=== PATIENT | female | born 1970 | race African-American/Black ===

== ENCOUNTER 2021-02-28 09:10 | Emergency (ER) | payer OTHER ==
[~2021-02-28] VITALS: Ht 157.5 cm; Wt 89.7 kg
[2021-02-28] MEDS ORDERED: IV NORMAL SALINE 1000ML BAG 1,000 ML IV ONE (10:30)
[2021-02-28] MEDS ORDERED: CARV25TA2 PO (10:37)
--- NOTE | 2021-02-28 11:10 | EKG ---
[facility] [address] [place] [address] Test Date: 2021-02-28 Test Time: 10:58:09 Pat Name: ROCK RAMIREZ Department: Room: Gender: F Account Support Specialist: : 1970 Requested By: JASMINE GAITAN Order Number: [id number] Reading MD: Yrn Suero Measurements Intervals [place] Rate: 91 P: 63 TX: 144 QRS: -21 QRSD: 90 T: -1 QT: 378 QTc: 467 Interpretive Statements SINUS RHYTHM LEFT ATRIAL ABNORMALITY LEFTWARD AXIS INCOMPLETE RIGHT BUNDLE BRANCH BLOCK CONSIDER LEFT VENTRICULAR HYPERTROPHY NON SPECIFIC ST-T WAVE CHANGES RI6.02 No previous ECG available for comparison Electronically Signed On 02-28-2021 15:17:23 [employer] by Yrn Suero
[2021-02-28 11:11] LABS: BASO # 0.1 x10^3/uL (0.0-0.2); BASO % 1 % (0-3); EOS # 0.3 x10^3/uL (0.0-0.7); EOS % 3 % (0-3); HEMATOCRIT 36.3 % (36.0-47.0); HEMOGLOBIN 11.6 g/dL (12.0-15.5); LYMPH # 2.5 x10^3/uL (1.0-4.8); LYMPH % 32 % (24-48); MEAN CORPUSCULAR HEMOGLOBIN 28 pg (25-35); MEAN CORPUSCULAR HGB CONC 32 g/dL (31-37); MEAN CORPUSCULAR VOLUME 86 fL (79-100); MONO # 0.8 x10^3/uL (0.0-1.1); MONO % 10 % (0-9); NEUT # 4.4 x10^3/uL (1.8-7.7); NEUT % 55 % (31-73); PLATELET COUNT 299 x10^3/uL (140-400); RED BLOOD COUNT 4.22 x10^6/uL (3.50-5.40); RED CELL DISTRIBUTION WIDTH 14.5 % (11.5-14.5)
--- NOTE | 2021-02-28 11:18 | PHYS DOC ---
Past Medical History Past Medical History: Hypertension Past Surgical History: Other Additional Past Surgical Histo: 2006- sx for ruptured nasal blood vessels(AVM?), required inpt transfusion Smoking Status: Never Smoker Alcohol Use: Occasionally General Adult EDM: Chief Complaint: DIZZY/LIGHT HEADED HPI: HPI: Patient is a 50 year old female who presents with lightheadedness and presyncope for the past 2 days with one episode of syncope. Patient reports her symptoms are worse upon standing from sitting or supine position. And her syncopal episode 2 days ago, patient states that she was standing in the bathroom at the sink. She denies head trauma. Patient reports she lost consciousness for period of a few minutes. Her son was at home at the time, and she called out to him. She called her primary care doctor at that time, who told her her symptoms were likely due to resuming her high blood pressure medications after having been out for some time. Patient denies headache, vertigo, vision changes, visual field deficits, chest pain, palpitations, abdominal pain, NVD, bloody stool or emesis. Patient is currently menstruating. Review of Systems: Review of Systems: Constitutional: Denies fever or chills. Eyes: See HPI HENT: Denies nasal congestion or sore throat. Respiratory: Denies cough or shortness of breath. Cardiovascular: Denies chest pain or edema. GI: See HPI : Denies dysuria or hematuria. Musculoskeletal: Denies back pain or joint pain. Integument: Denies rash or other skin lesions. Neurologic: See HPI Heart Score: C/O Chest Pain: No Current Medications: Current Medications Medications (Trade) Dose Ordered Sig/Ness Start Time Stop Time Status Last Admin Dose Admin Sodium Chloride 1,000 ml @ 1,000 mls/hr 1X ONCE 02/28/21 10:30 02/28/21 11:29 02/28/21 10:58 1,000 MLS/HR Allergies: Allergies: Allergies Coded Allergies Type Severity Reaction Last Updated Verified iodine Allergy Intermediate 02/28/21 Yes Physical Exam: PE: Constitutional: Well developed, well nourished, no acute distress, non-toxic appearance. HENT: Normocephalic, atraumatic, bilateral external ears without deformity or discharge, oropharynx moist, no oral exudates, nose without deformity or discharge. Eyes: PERRLA, EOMI, conjunctiva normal, no discharge. Neck: Normal range of motion, no tenderness, supple, no stridor. Cardiovascular: Heart rate regular rhythm, no murmur. Lungs & Thorax: Bilateral breath sounds clear to auscultation. Skin: Warm, dry, no erythema, no rash. Neurologic: Alert and oriented x4, motor strength 5/5 grossly in extremities x4, sensory function grossly intact, no focal deficits noted. Current Patient Data: Labs: Laboratory Tests Test 02/28/21 10:12 02/28/21 10:15 02/28/21 12:55 Glucose (Fingerstick) 103 mg/dL (70-99) White Blood Count 8.0 x10^3/uL (4.0-11.0) Red Blood Count 4.22 x10^6/uL (3.50-5.40) Hemoglobin 11.6 g/dL (12.0-15.5) Hematocrit 36.3 % (36.0-47.0) Mean Corpuscular Volume 86 fL (79-100) Mean Corpuscular Hemoglobin 28 pg (25-35) Mean Corpuscular Hemoglobin Concent 32 g/dL (31-37) Red Cell Distribution Width 14.5 % (11.5-14.5) Platelet Count 299 x10^3/uL (140-400) Neutrophils (%) (Auto) 55 % (31-73) Lymphocytes (%) (Auto) 32 % (24-48) Monocytes (%) (Auto) 10 % (0-9) Eosinophils (%) (Auto) 3 % (0-3) Basophils (%) (Auto) 1 % (0-3) Neutrophils # (Auto) 4.4 x10^3/uL (1.8-7.7) Lymphocytes # (Auto) 2.5 x10^3/uL (1.0-4.8) Monocytes # (Auto) 0.8 x10^3/uL (0.0-1.1) Eosinophils # (Auto) 0.3 x10^3/uL (0.0-0.7) Basophils # (Auto) 0.1 x10^3/uL (0.0-0.2) Sodium Level 134 mmol/L (136-145) Potassium Level 4.1 mmol/L (3.5-5.1) Chloride Level 97 mmol/L (98-107) Carbon Dioxide Level 22 mmol/L (21-32) Anion Gap 15 (6-14) Blood Urea Nitrogen 12 mg/dL (7-20) Creatinine 0.9 mg/dL (0.6-1.0) Estimated GFR (Cockcroft-Gault) 80.9 BUN/Creatinine Ratio 13 (6-20) Glucose Level 93 mg/dL (70-99) Calcium Level 8.9 mg/dL (8.5-10.1) Total Bilirubin 0.5 mg/dL (0.2-1.0) Aspartate Amino Transf (AST/SGOT) 22 U/L (15-37) Alanine Aminotransferase (ALT/SGPT) 30 U/L (14-59) Alkaline Phosphatase 70 U/L (46-116) Troponin I High Sensitivity 7 ng/L (4-50) Total Protein 7.6 g/dL (6.4-8.2) Albumin 3.5 g/dL (3.4-5.0) Albumin/Globulin Ratio 0.9 (1.0-1.7) Urine Collection Type Unknown Urine Color Yellow Urine Clarity Clear Urine pH 6.0 (<5.0-8.0) Urine Specific [place] 1.010 (1.000-1.030) Urine Protein Negative mg/dL (NEG-TRACE) Urine Glucose (UA) Negative mg/dL (NEG) Urine Ketones (Stick) Negative mg/dL (NEG) Urine Blood Large (NEG) Urine Nitrite Negative (NEG) Urine Bilirubin Negative (NEG) Urine Urobilinogen Dipstick 0.2 mg/dL (0.2 mg/dL) Urine Leukocyte Esterase Negative (NEG) Urine RBC >40 /HPF (0-2) Urine WBC 0 /HPF (0-4) Urine Squamous Epithelial Cells Few /LPF Urine Bacteria 0 /HPF (0-FEW) Vital Signs: Vital Signs Date Time Temp Pulse Resp B/P (MAP) Pulse Ox O2 Delivery O2 Flow Rate FiO2 02/28/21 10:10 97.8 96 16 141/74 (96) 97 Room Air 97.8 EKG: EKG: EKG Interpreted by Dr. Coronado at 1013: Regular rate and rhythm 93 bpm with no ectopic beats. RBBB. QT 360 ms/QTc 460 ms. No STEMI. Radiology/Procedures: Radiology/Procedures: PROCEDURE: PORTABLE CHEST 1V Site ID: [id number] EXAMINATION: XR CHEST 1V. HISTORY: 50 years Female Reason: CP, lightheaded / . COMPARISON: None. Findings: There is mild opacity in the left lung base favored to represent the soft tissue superimposition on this portable radiograph. No definite focal airspace consolidation.. The heart size is near the upper limits of normal. There is no effusion or pneumothorax. The mediastinum and fuentes appear unremarkable. Impression: Increased opacity in the left lung base is favored to be secondary soft tissue superimposition on this portable radiograph. Electronically signed by: Anjel James MD (02/28/2021 11:31 AM) [id number] Course & Med Decision Making: Course & Med Decision Making Pertinent Labs and Imaging studies reviewed. (See chart for details) Patient is a 42-year-old female who presents with 1 syncopal episode and dizziness/presyncope since. When she called her primary care doctor after syncopal episode, he stated that her symptoms were likely due to resuming her blood pressure medications after not taking them for some time. Patient pre sents today due to persistent symptoms of lightheadedness. Work-up today will include EKG, chest x-ray, lab work. Work-up today is largely reassuring and shows some signs of mild dehydration. Advised patient to follow-up with her primary care doctor as soon as she is able. Reassured her that her EKG and lab work were unremarkable today. Patient given return precautions. Patient understands and is agreeable to discharge plan. Dragon Disclaimer: Ching Disclaimer: This electronic medical record was generated, in whole or in part, using a voice recognition dictation system. Departure Departure Impression: Primary Impression: Lightheadedness Additional Impression: Hx of syncope Disposition: HOME / SELF CARE / HOMELESS Condition: STABLE Referrals: NON,STAFF (PCP) Patient Instructions: Hypertension, [id number], Syncope, [id number] Additional Instructions: Your work-up here in the emergency department, including chest x-ray, EKG and lab work, was very reassuring. You should follow-up with your primary care doctor regarding your symptoms and today's visit. Be sure to take in plenty of fluids by mouth over the next few days to stay hydrated. If you have worsening symptoms or develop any new ones, please return to the emergency department. JASMINE GAITAN Feb 28, 2021 11:18
[2021-02-28 11:27] LABS: CALCIUM 8.9 mg/dL (8.5-10.1); CREATININE 0.9 mg/dL (0.6-1.0); GFR 80.9; POTASSIUM 4.1 mmol/L (3.5-5.1)
[2021-02-28 11:33] LABS: ALBUMIN 3.5 g/dL (3.4-5.0); ALBUMIN/GLOBULIN RATIO 0.9 (1.0-1.7); TOTAL BILIRUBIN 0.5 mg/dL (0.2-1.0); TOTAL PROTEIN 7.6 g/dL (6.4-8.2)
--- NOTE | 2021-02-28 11:33 | RAD ---
Site ID: [id number] EXAMINATION: XR CHEST 1V. HISTORY: 50 years Female Reason: CP, lightheaded / . COMPARISON: None. Findings: There is mild opacity in the left lung base favored to represent the soft tissue superimpos ition on this portable radiograph. No definite focal airspace consolidation.. The heart size is near the upper limits of normal. There is no effusion or pneumothorax. The mediastinum and fuentes appear unremarkable. Impression: Increased opacity in the left lung base is favored to be secondary soft tissue superimpos ition on this portable radiograph. Electronically signed by: Anjel James MD (02/28/2021 11:31 AM) [id number]
[2021-02-28 13:20] LABS: BILIRUBIN,URINE NEGATIVE (NEG); CLARITY,URINE CLEAR; COLOR,URINE YELLOW; NITRITE,URINE NEGATIVE (NEG); PROTEIN,URINE NEGATIVE (NEG-TRACE); UROBILINOGEN,URINE 0.2 mg/dL (0.2 mg/dL)
[2021-02-28 13:27] LABS: RBC,URINE >40 /HPF (0-2)
[2021-02-28 13:29] LABS: BACTERIA,URINE 0 /HPF (0-FEW); WBC,URINE 0 /HPF (0-4)
[2021-02-28 14:23] VITALS: BP 149/69
--- NOTE | 2021-03-02 08:07 | EKG ---
[facility] [address] [place] [address] Test Date: 2021-02-28 Test Time: 10:11:14 Pat Name: ROCK RAMIREZ Department: Room: Gender: F Journeyman Welder: : 1970 Requested By: JASMINE GAITAN Order Number: [id number] Reading MD: Measurements Intervals [place] Rate: 93 P: 46 IN: 146 QRS: -10 QRSD: 88 T: 4 QT: 368 QTc: 460 Interpretive Statements SINUS RHYTHM LEFT ATRIAL ABNORMALITY LEFTWARD AXIS INCOMPLETE RIGHT BUNDLE BRANCH BLOCK T ABNORMALITY IN INFERIOR LEADS ABNORMAL ECG RI6.02 No previous ECG available for comparison
== END 2021-02-28 14:24 | disposition home or self-care (01) ==
LOC: ER 09:10
DX: R55 Syncope and collapse (principal); I10 Essential (primary) hypertension; Z88.8 Allergy status to other drugs, medicaments and biological substances
CPT/HCPCS: 36415; 71045; 80053; 81001; 82962; 84484; 85025; 93005; 96360; 96361; 99285; J7030

== ENCOUNTER → 2021-03-10 | Outpatient (CLI) | payer OTHER ==
[2021-02-28 14:23] VITALS: BP 149/69
[~2021-03-10] MED LIST: CARV25TA2 PO
--- NOTE | 2021-03-10 09:00 | RAD ---
CT HEAD INDICATION: Post traumatic headache COMPARISON: None Available. Exposure: One or more of the following individualized dose reduction techniques were utilized for thi s examination: 1. Automated exposure control 2. Adjustment of the mA and/or kV according to patient size 3. Use of iterative reconstruction technique TECHNIQUE: 5 mm contiguous axial images were obtained from the skull base to the vertex in both bone and soft tissue algorithm. FINDINGS: Mild bilateral periventricular white matter hypodensities likely chronic small vessel ischemic diseas e. No evidence of acute intracranial hemorrhage. No extra-axial fluid collections. No mass effect or midline shift. Ventricular size is appropriate. Basal cisterns are patent. No fractures identified.Cameron-white differentiation is preserved.Globes and orbits are within normal l imits. Partially visualized opacification of the right maxillary sinus. IMPRESSION: 1.No acute intracranial findings. 2. Opacification of the right maxillary sinus partially visualized likely sinus disease. Electronically signed by: Ab River MD (03/10/2021 8:57 AM) [id number]
== END ==
LOC: CT 08:12
PROVIDERS: ATTEND Preventive Medicine Occupational Medicine
DX: J34.89 Other specified disorders of nose and nasal sinuses (principal); G44.319 Acute post-traumatic headache, not intractable
CPT/HCPCS: 70450